=== PATIENT | male | born 1995 | race Caucasian/White ===

== ENCOUNTER → 2018-07-21 | Outpatient (CLI) | payer OTHER ==
--- NOTE | 2018-07-21 12:35 | EKG ---
FACILITY: [facility] PATIENT NAME: MERYL WOODY : [id number] MR: [id number]: [id number] EXAM DATE: ORDERING PHYSICIAN: INDIO MATTHEWS TECHNOLOGIST: KARSON Mas Reason : SYNCOPE Blood Pressure : / mmHG Vent. Rate : 059 BPM Atrial Rate : 059 BPM P-R Int : 148 ms QRS Dur : 086 ms QT Int : 384 ms P-R-T Axes : 072 087 072 degrees QTc Int : 380 ms Sinus rhythm Nonspecific ST findings diffusely Positive voltage criteria for left ventricular hypertrophy Confirmed by JELLY MORGAN ([id number] on 07/21/2018 2:58:28 PM Referred By: BYRON Confirmed By:JELLY MORGAN
[2018-07-21 13:01] LABS: LDL CHOLESTEROL 133 mg/dl
[2018-07-21 13:44] LABS: PLATELET COUNT, AUTOMATED 267 K/uL (150-450)
== END ==
LOC: LAB 12:04
PROVIDERS: ATTEND Nurse Practitioner Family
DX: R55 Syncope and collapse (principal)
CPT/HCPCS: 82040; 82247; 82310; 82374; 82435; 82465; 82565; 82947; 83718; 84075; 84132; 84155; 84295; 84443; 84450; 84460; 84478; 84520; 85007; 85027; 93005